=== PATIENT | male | born 1945 | race Caucasian/White ===

== ENCOUNTER 2017-10-20 21:32 | Emergency (ER) | payer MEDICARE ==
[2017-10-20] MEDS ORDERED: oxyCODONE/Acetamin 5/325 MG* TAB PO ONE (22:56)
[2017-10-20] MEDS ORDERED: Ibuprofen TAB* 600 MG PO ONE (22:56)
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
[2017-10-21 00:12] VITALS: BP 148/85
--- NOTE | 2017-10-21 10:20 | RAD ---
INDICATION: Left hip pain COMPARISON: None TECHNIQUE: 3 views of the left hip were obtained. FINDINGS: Postsurgical changes include vasectomy clips and surgical clips overlying the right inguinal region. The visualized bones of the left hip are well-corticated and properly aligned. Degenerative changes of the bilateral hips in the AP view the pelvis include joint space narrowing, sclerotic change of the articulating services and exuberant marginal osteophyte formation on the left.There is no radiographic evidence of acute fracture or dislocation. IMPRESSION: Osteoarthritis of the bilateral hips, more advanced than the left, without radiographic evidence of acute fracture or dislocation. If the patient's symptoms persist follow-up imaging is recommended.
== END 2017-10-21 00:10 | disposition home or self-care (01) ==
LOC: ED 21:32
DX: M16.0 Bilateral primary osteoarthritis of hip (principal); M54.5 Low back pain; I11.0 Hypertensive heart disease with heart failure; I50.9 Heart failure, unspecified; Z79.899 Other long term (current) drug therapy
CPT/HCPCS: 99282; A9270-GY

== ENCOUNTER 2018-01-17 05:52 | Inpatient (IN) | payer MEDICARE ==
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
[~2018-01-17 05:52] MED LIST: Buffered Lidocaine 0.9% SYRIN* 5 ML/SYR SYRINGE INTRADERM ONE
[2018-01-17] MEDS ORDERED: Famotidine IV* 10 MG/ML 2 ML (20 mg) IV ONE (06:00)
[2018-01-17] MEDS ORDERED: Famotidine IV* 10 MG/ML 2 ML (20 mg) ONE (06:04)
[2018-01-17] MEDS ORDERED: ceFAZolin 2 GM PREMIX in ORs 2 GM/50 ML BAG IVPB ONE (06:04)
[2018-01-17] MEDS ORDERED: fentaNYL* 50 MCG/ML 2 ML VIAL (100 MCG VIAL) ONE (07:44)
[2018-01-17] MEDS ORDERED: Midazolam* 1 MG/ML 5 ML VIAL (5 MG) ONE (07:45)
[2018-01-17] MEDS ORDERED: KETAMINE HCL* 50 MG/ML 10 ML VIAL ONE (07:50)
[2018-01-17] MEDS ORDERED: Dexamethasone IV* 4 MG/ML 1 ML (4 MG) ONE (08:23)
[2018-01-17] MEDS ORDERED: DiMENhydriNATE IV* 50 MG/ML VIAL ONE (08:23)
[2018-01-17] MEDS ORDERED: Ondansetron INJ* 2 MG/ML VIAL ONE (08:23)
[2018-01-17] MEDS ORDERED: Ketorolac INJ* 30 MG/ML 1 ML VIAL ONE (08:23)
[2018-01-17] MEDS ORDERED: Propofol* 10 MG/ML 20 ML BTL IV PUSH ONE ×2 (08:23→08:49)
[2018-01-17] MEDS ORDERED: Lidocaine 2% PF * 5 ML VIAL ONE (08:24)
[2018-01-17] MEDS ORDERED: Phenylephrine INJ* 10 MG/ML 1 ML VIAL (10 MG) ONE (08:24)
[2018-01-17] MEDS ORDERED: Bupivacaine-MPF SPINAL* 7.5 MG/ML - 2ML AMP ONE (08:24)
[2018-01-17] MEDS ORDERED: EPHEDrine (Pressors)* 50 MG/ML VIAL ONE (08:45)
[2018-01-17] MEDS ORDERED: HYDROmorphone INJ1* 1 MG/ML SYRINGE IV PRN (09:07)
[2018-01-17] MEDS ORDERED: Naloxone* 0.4 MG/ML 1 ML VIAL IV PRN (09:07)
[2018-01-17] MEDS ORDERED: DiMENhydriNATE IV* 50 MG/ML VIAL IV PUSH PRN (09:07)
[2018-01-17] MEDS ORDERED: oxyCODONE/Acetamin 5/325 MG* TAB PO PRN ×2 (09:07→10:27)
--- NOTE | 2018-01-17 09:46 | RAD ---
Indication: LEFT total hip replacement. Comparison: December 22, 2017 Technique: RIGHT lateral decubitus crosstable AP pelvis and LEFT hip. 0916 hours Report: Prosthetic acetabular component in place. Femur test fit/reamer device in place. No periprosthetic fracture evident. IMPRESSION: #. Intraoperative control films.
[2018-01-17] MEDS ORDERED: Morphine INJ* 2 MG/ML 1 ML SYRINGE (TWO MG - NEW SYRINGE VERSION) IV PRN (10:27)
[2018-01-17] MEDS ORDERED: oxyCODONE TAB* 5 MG TAB PO PRN (10:27)
[2018-01-17] MEDS ORDERED: diPHENhydraMINE IV* 50 MG/ML 1 ml VIAL (BENADRYL) IV PRN (10:27)
[2018-01-17] MEDS ORDERED: Bisacodyl SUPP* 10 MG SUPP PR PRN (10:27)
[2018-01-17] MEDS ORDERED: Cyclobenzaprine TAB* 10 MG PO PRN (10:27)
[2018-01-17] MEDS ORDERED: Magnesium Hydroxide LIQ* 30 ML UDC PO PRN (10:27)
[2018-01-17] MEDS ORDERED: Ondansetron INJ* 2 MG/ML VIAL IV PRN (10:27)
--- NOTE | 2018-01-17 11:16 | RAD ---
Indication: Postop LEFT total hip replacement. Comparison: October 20, 2017 Technique: AP and AP and crosstable lateral views LEFT hip. Report: LEFT total hip prosthesis in place with normal alignment. No periprosthetic fracture evident. Surrounding soft tissue edema and subcutaneous emphysema. Mild osteoarthritis of the contralateral hip noted. IMPRESSION: #. Unremarkable immediate postop appearance following LEFT total hip replacement.
[2018-01-17] MEDS: oxyCODONE/Acetamin 5/325 MG* TAB PO PRN ×2 (13:54→21:16)
[2018-01-17] MEDS: Acetaminophen TAB* 325 MG PO SCH ×2 (13:55→21:32)
--- NOTE | 2018-01-17 14:50 | PN ---
Progress Note - Progress Note Date of Service: 01/17/18 SOAP: Patient seen at bedside POD 0 s/p left total hip arthroplasty. Pain is well controlled. DP2+, DF/PF intact. Sensation intact distally. Dressing CDI.
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
[2018-01-17] MEDS: ceFAZolin 1 GM in Dextrose (*) 1 GM/50 ML BAG IVPB SCH (16:54)
[2018-01-17] MEDS ORDERED: Warfarin TAB(*) 6 MG PO ONE (17:00)
[2018-01-17] MEDS ORDERED: Atorvastatin* 80 MG TAB PO SCH (18:00)
[2018-01-17] MEDS: Magnesium Hydroxide LIQ* 30 ML UDC PO SCH (21:13)
[2018-01-17] MEDS: Tamsulosin CAP* 0.4 MG PO SCH (21:15)
[2018-01-17] MEDS: Docusate CAP* 100 MG PO SCH (21:16)
[2018-01-18] MEDS: ceFAZolin 1 GM in Dextrose (*) 1 GM/50 ML BAG IVPB SCH ×2 (00:11→07:02)
--- NOTE | 2018-01-18 02:11 | OP ---
DATE OF OPERATION: 01/17/18 - ROOM #335 DATE OF : 41 SURGEON: Vijaya Campos MD GENERAL LEDGER BOOKKEEPER: ROGER Denis. Mr. Johnson did help throughout the procedure with preparation of the leg, wound retraction, manipulation of the hip, and wound closure. ANESTHESIOLOGIST: Dr. Castaneda. ANESTHESIA: Spinal. PRE-OP DIAGNOSIS: Severe end-stage degenerative osteoarthritis of the left hip joint. POST-OP DIAGNOSIS: Severe end-stage degenerative osteoarthritis of the left hip joint. OPERATIVE PROCEDURE: Left total hip arthroplasty. COMPLICATIONS: None. ESTIMATED BLOOD LOSS: 300 cc. SPECIMENS: Femoral head and acetabular reamings sent to Pathology. HARDWARE USED: This is uncemented Venturocket total hip arthroplasty hardware. For the cup, a Tritanium cluster hole shell 56E, a single 25-mm cancellous bone screw was used. For the liner, a 36E, 0-degree Trident X3 polyethylene liner. For the stem, an Accolade TMZF size 4 with a 127-degree neck. For the head, a Biolox delta V40 femoral head 36 -2.5. BRIEF HISTORY/INDICATIONS: Mr. Aparicio is a 72-year-old gentleman with severe end- stage arthritis of the left hip joint. He failed conservative treatment with antiinflammatories, pain medications, intraarticular injections, and physical therapy. Due to continued pain and decreased quality of life, he elected to undergo left total hip arthroplasty. An informed consent was obtained from the patient. He understood the risks of surgery included but were not limited to bleeding, infection, damage to nearby structures, continued pain, need for further surgery, intraoperative fracture, nerve palsy, hardware failure or loosening, dislocation, leg length discrepancy, stroke, heart attack , blood clot, and . He wished to proceed. INTRAOPERATIVE FINDINGS: Intraoperatively, the patient was noted to have severe end-stage arthritis with complete loss of cartilage along the acetabulum and femoral head. He had extensive osteophyte formation around the entire acetabulum. DESCRIPTION OF PROCEDURE: Mr. Aparicio was identified in the preanesthesia unit. His left lower extremity was marked as the correct operative side. Informed consent was signed and placed in the chart. The patient was taken to the operating room and placed under spinal anesthesia. A Griffith catheter was placed. The patient was placed in the right lateral decubitus position on the pegboard. All bony prominences were well padded. Left lower extremity was prepped and draped in the usual sterile fashion. Preop time-out was made to correctly identify the patient's side and site. Appropriate perioperative antibiotics were given within 1 hour of incision. A standard 12-cm posterior hip incision was made with a 10 blade and carried down to the lateral fascial layer. Lateral fascial layer was incised in line with the skin incision. Charnley retractor was placed. The piriformis and conjoint tendons were identified off the posterolateral femur and elevated using electrocautery. These were tagged with #5 Ethibond. Next, electrocautery was used to make a standard posterolateral capsular flap and this was also tagged with #5 Ethibond. The hip was carefully dislocated. Lesser troch to center of the femoral head measured 62 mm. Oscillating saw was used to make the appropriate femoral neck cut. The femoral head was removed. The femur was carefully retracted anteriorly. After appropriate placement of retractors, the acetabulum was well visualized. Long-handled knife was used to sharply remove any remaining labrum from the acetabular rim. The acetabulum was sequentially reamed up to a size 55. 55 reamer obtained subchondral bleeding bone bed. 55 trial had excellent fit with appropriate anteversion and abduction angle. Final implant chosen was a 56E Tritanium cluster hole hemispheric shell. This was impacted into the acetabulum without difficulty. The cup was stable with appropriate anteversion and abduction angle. Any peripheral osteophytes were carefully removed using an osteotome. A 25-mm cancellous bone screw was placed in the superior posterior quadrant for extra stability. A Trident X3 0-degree polyethylene insert 36E was chosen and impacted into the acetabulum. Stability of the insert was checked and rechecked and noted to be stable. Next, attention was turned to preparation of the femoral canal. The canal finder was used to enter the proximal femur. The femur was sequentially broached up to a size 4. Size 4 broach had good fit with appropriate anteversion. A 127-neck trial with a 36 +0 head trial. The lesser troch to the center of the femoral head measured 65 mm. Therefore, -2.5 head was chosen. Lesser troch to the center of the femoral head measured 62 mm. The hip was reduced and taken through a range of motion. The hip was stable in all positions. Soft tissue tension and leg lengths were deemed to be appropriate. All trials were removed. Final implant chosen was an Accolade TMZF size 4 with a 127-degree neck. This was impacted into the femoral canal without difficulty. The stem was stable with appropriate anteversion. A Biolox delta ceramic V40 femoral head 36 -2.5 chosen as the final implant. This was impacted onto the femoral head at 52 mm. The hip was reduced and taken through a range of motion. The hip was stable in all positions. There was good soft tissue tension and appropriate leg length. The hip was copiously irrigated with sterile saline. Previously tagged capsule and tendons were reapproximated to the posterolateral femur through 2 trochanteric drill holes. The lateral fascial layer was closed using interrupted #1 Vicryls. The rest of the incision was closed in a layered fashion using 0 and 2-0 Vicryls. The skin was closed using running 3-0 Monocryl and Dermabond. Sterile Adaptic, 4x4s, and paper tape were used to cover the incision. The patient's anesthesia was reversed without difficulty. He was taken to the PACU in stable condition. Intended weightbearing will be weightbearing as tolerated. Intended DVT prophylaxis will be Coumadin with a Lovenox bridge. [id number]/[facility] #: [id number] ALVARO
[2018-01-18] MEDS: oxyCODONE/Acetamin 5/325 MG* TAB PO PRN ×2 (04:28→11:30)
[2018-01-18 05:47] LABS: Hematocrit 32 % (42-52); Mean Platelet Volume 7.9 um3 (7.4-10.4); Platelet Count 163 10^3/ul (150-450)
[2018-01-18] MEDS: Acetaminophen TAB* 325 MG PO SCH ×2 (05:50→12:45)
[2018-01-18 05:52] LABS: INR 1.02 (0.77-1.02)
[2018-01-18 06:02] LABS: EGFR Non-African American 85.8 (>60)
--- NOTE | 2018-01-18 07:15 | PN ---
Progress Note - Progress Note Date of Service: 01/18/18 SOAP: Subjective: Pt. is alert, pain controlled, hopes to go home today. Objective: Vital Signs: Temp Pulse Resp BP Pulse Ox 98.4 F 73 18 120/55 95 01/18/18 04:27 01/18/18 04:27 01/18/18 07:07 01/18/18 04:27 01/18/18 07:07 Laboratory Results - last 24 hr 01/18/18 01/18/18 01/18/18 05:14 05:14 05:14 Hgb 11.0 L Hct 32 L Plt Count 163 MPV 7.9 INR (Anticoag Therapy) 1.02 Sodium 139 Potassium 3.9 Chloride 106 Carbon Dioxide 28 Anion Gap 5 BUN 13 Creatinine 0.87 Est GFR ( Amer) 103.8 Est GFR (Non-Af Amer) 85.8 BUN/Creatinine Ratio 14.9 Glucose 160 H Calcium 8.3 L LLE - dressing c/d/i, thigh soft, distally +df/pf, full sens lt, 2+ dp pulse. Assessment: 72 yo M pod 1 s/p LTHA Plan: wbat lle with post hip precautions pt/ot coumadin with lovenox bridge plan possible d/c to home today with vns - if home today will do ecasa 325 bid []
[2018-01-18] MEDS: Tamsulosin CAP* 0.4 MG PO SCH (08:06)
[2018-01-18] MEDS: Magnesium Hydroxide LIQ* 30 ML UDC PO SCH (08:06)
[2018-01-18] MEDS: Docusate CAP* 100 MG PO SCH (08:06)
--- NOTE | 2018-01-18 08:28 | PN ---
Subjective Date of Service: 01/18/18 Interval History: Pt would like to go home today. Post op pain controlled Objective Active Medications: Acetaminophen (Tylenol Tab*) 650 mg PO Q8HR [facility] Last Admin: 01/18/18 05:50 Dose: Not Given Atorvastatin Calcium (Lipitor*) 80 mg PO QPM [facility] Last Admin: 01/17/18 16:56 Dose: 80 mg Bisacodyl (Dulcolax Supp*) 10 mg NE DAILY PRN PRN Reason: constipation Cyclobenzaprine HCl (Flexeril Tab*) 5 mg PO TID PRN PRN Reason: SPASMS Last Admin: 01/17/18 21:14 Dose: 5 mg Diphenhydramine HCl (Benadryl Iv*) 25 mg IV Q6H PRN PRN Reason: itching Docusate Sodium (Colace Cap*) 100 mg PO BID [facility] Last Admin: 01/18/18 08:06 Dose: 100 mg Enoxaparin Sodium (Lovenox(*)) 40 mg SUBCUT Q24H [facility] Lactated Ringer's (Lactated Ringers 1000 Ml Bag*) 1,000 mls @ 100 mls/hr IV PER RATE [facility] Last Admin: 01/18/18 08:09 Dose: 100 mls/hr Lactulose (Lactulose*) 30 ml PO Q6H PRN PRN Reason: constipation Magnesium Hydroxide (Milk Of Magnesia Liq*) 30 ml PO BID [facility] Last Admin: 01/18/18 08:06 Dose: 30 ml Magnesium Hydroxide (Milk Of Magnesia Liq*) 30 ml PO Q6H PRN PRN Reason: constipation Metoprolol Tartrate (Lopressor Tab*) 25 mg PO QAM [facility] Last Admin: 01/18/18 08:06 Dose: 25 mg Morphine Sulfate (Morphine Inj ((Syringe))*) 2 mg IV Q2H PRN PRN Reason: PAIN - SEVERE Multivitamins (Theragran Tab*) 1 tab PO DAILY [facility] Last Admin: 01/18/18 08:06 Dose: 1 tab Ondansetron HCl (Zofran Inj*) 4 mg IV Q6H PRN PRN Reason: nausea Oxycodone HCl (Roxycodone Tab*) 10 mg PO Q4H PRN PRN Reason: PAIN - SEVERE Last Admin: 01/17/18 16:56 Dose: 10 mg Oxycodone/Acetaminophen (Percocet 5/325 Tab*) 1 tab PO Q4H PRN PRN Reason: PAIN Oxycodone/Acetaminophen (Percocet 5/325 Tab*) 2 tab PO Q4H PRN PRN Reason: PAIN Last Admin: 01/18/18 04:28 Dose: 2 tab Pharmacy Profile Note (Coumadin Daily Reminder*) 0 note FOLLOW UP 1700 [facility] Last Admin: 01/17/18 16:56 Dose: 1 note Tamsulosin HCl (Flomax Cap*) 0.4 mg PO BID [facility] Last Admin: 01/18/18 08:06 Dose: 0.4 mg Warfarin Sodium (Coumadin Tab(*)) 8 mg PO ONCE@1700 ONE; Protocol Stop: 01/18/18 17:01 Vital Signs - 8 hr 01/18/18 01/18/18 01/18/18 04:27 04:28 06:42 Temperature 98.4 F Pulse Rate 73 Respiratory 18 16 16 Rate Blood Pressure 120/55 (mmHg) O2 Sat by Pulse 95 Oximetry 01/18/18 01/18/18 07:07 07:57 Temperature 98.5 F Pulse Rate 81 Respiratory 18 16 Rate Blood Pressure 122/55 (mmHg) O2 Sat by Pulse 95 94 Oximetry Oxygen Devices in Use Now: None Appearance: 72 yo M in nAD, AAOx3 Eyes: No Scleral Icterus, PERRLA Ears/Nose/Mouth/Throat: NL Teeth, Lips, Gums, Mucous Membranes Moist Neck: NL Appearance and Movements; NL JVP, Trachea Midline Respiratory: Symmetrical Chest Expansion and Respiratory Effort, Clear to Auscultation Cardiovascular: NL Sounds; No Murmurs; No JVD Abdominal: NL Sounds; No Tenderness; No Distention Lymphatic: No Cervical Adenopathy Extremities: No Edema, No Clubbing, Cyanosis Skin: No Nodules or Sclerosis, - - left post op -dressings not removed, no obvious hematoma noted Neurological: Alert and Oriented x 3, NL Muscle Strength and Tone Result Diagrams: 01/18/18 05:14 01/18/18 05:14 Assess/Plan/Problems-Billing Assessment: 72 yo m with h/o CAD, HTN, s/p elective left hip replacement - Patient Problems (1) Hip joint replacement status Comment: as per ortho service (2) HTN (hypertension) Comment: cont lopressor, controlled (3) CAD (coronary artery disease) Comment: spoke with ortho service re: optimal tx with ASA 81 mg and Eliquis, but Eliquis only is also acceptable (4) DVT prophylaxis Comment: planned Eliquis at d/c Status and Disposition: thank you for consult, will sign off
[2018-01-18] MEDS ORDERED: Vitamin THERAPEUTIC TAB PO SCH (09:00)
[2018-01-18] MEDS ORDERED: Metoprolol Tartrate TAB* 25 MG PO SCH (09:00)
[2018-01-18 11:42] VITALS: BP 140/63
[2018-01-18] MEDS ORDERED: Enoxaparin(*) 40 MG/0.4 ML SYR SUBCUT SCH (12:00)
[2018-01-18] MEDS ORDERED: Warfarin TAB(*) 4 MG PO ONE (17:00)
--- NOTE | 2018-01-18 22:07 | DS ---
AMENDED REPORT NOW INCLUDES COSIGNER DESIGNATION - ESIGNED BEFORE ADJUSTMENT DISCHARGE SUMMARY: DATE OF ADMISSION: 01/17/18. DATE OF DISCHARGE: 01/18/18. ATTENDING SURGEON: Dr. Campos * (DICTATED BY ROGER ESQUIVEL) PRINCIPAL DIAGNOSIS: End-stage osteoarthritis of the left hip. DISCHARGE DIAGNOSIS: End-stage osteoarthritis of the left hip. HISTORY OF PRESENT ILLNESS: Mr. Aparicio is a 72-year-old gentleman with continued complaints of left hip pain. He has failed conservative treatment and elected to proceed with a left total hip arthroplasty. HOSPITAL COURSE: Mr. Aparicio was admitted electively to the hospital on 01/17/18 , and underwent a left total hip arthroplasty. He tolerated the procedure well. Postoperatively, he was placed on Lovenox and Coumadin for DVT prophylaxis. On postop day #1, his H and H was 11 and 32. His INR was 1.02. His vital signs were stable and he was ambulating well with physical therapy. DISCHARGE MEDICATIONS: 1. Percocet 5/325 mg 1 to 2 tabs every 6 hours as needed for pain. 2. Colace 100 mg 2 to 3 times a day as needed for constipation. 3. Aspirin 325 mg twice a day for a month. 4. Lipitor 80 mg daily. 5. Metoprolol 25 mg daily. 6. Flomax 0.4 mg twice a day. PHYSICAL EXAMINATION UPON DISCHARGE: He was afebrile. His vital signs were stable. His wound was clean and dry. He was ambulating well with the aid of a walker and he was distally neurovascularly intact. DISCHARGE INSTRUCTIONS: He was discharged home. He will remain weightbearing as tolerated and continue the posterior hip precautions. He was given a prescription for Percocet to take every 6 hours for pain. He was also given aspirin 325 to take twice daily for DVT prophylaxis. He will follow up with Dr. Campos in 2 weeks. We have asked him to call our office sooner with any questions or concerns. ROGER ESQUIVEL [id number]/[facility] #: [id number] [facility]
== END 2018-01-18 15:45 | disposition home health service (06) | DRG 470 ==
LOC: AA 05:52 → SSU 11:51
PROVIDERS: ADMIT Orthopaedic Surgery Adult Reconstructive Orthopaedic Surgery; ATTEND Internal Medicine
PROC: 0SRB04A Replacement of Left Hip Joint with Ceramic on Polyethylene Synthetic Substitute, Uncemented, Open Approach (ICD-10-PCS; principal; 2018-01-16)
DX: M16.12 Unilateral primary osteoarthritis, left hip (principal); I25.10 Atherosclerotic heart disease of native coronary artery without angina pectoris; I10 Essential (primary) hypertension; E78.5 Hyperlipidemia, unspecified; N40.0 Benign prostatic hyperplasia without lower urinary tract symptoms; I27.20 Pulmonary hypertension, unspecified; I25.9 Chronic ischemic heart disease, unspecified; F41.9 Anxiety disorder, unspecified; M25.752 Osteophyte, left hip; Z98.52 Vasectomy status; Z82.49 Family history of ischemic heart disease and other diseases of the circulatory system; Z79.82 Long term (current) use of aspirin; Z95.5 Presence of coronary angioplasty implant and graft; Z87.891 Personal history of nicotine dependence; Z80.6 Family history of leukemia; I25.2 Old myocardial infarction; Z83.49 Family history of other endocrine, nutritional and metabolic diseases; Z90.89 Acquired absence of other organs; Z72.89 Other problems related to lifestyle; Z82.61 Family history of arthritis; Z83.3 Family history of diabetes mellitus
CPT/HCPCS: 36415; 80048; 85014; 85018; 85049; 85610; 88304; 88311; A9270-GY; C1713; C1776; G8978-GP-CI; G8978-GP-CJ; G8978-GP-CK; G8979-GP-CI; G8980-GP-CI; G8987-GO-CJ; G8988-GO-CJ; G8989-GO-CJ; J0690; J1100; J1240; J1650; J1885; J2250; J2405; J2704; J3010

== ENCOUNTER 2018-05-21 08:13 | Day surgery (SDC) | payer MEDICARE ==
[2018-05-21] MEDS ORDERED: Neomycin/Polymy/Dex OPHTH.OIN* 3.5 GM ONE (09:17)
[2018-05-21] MEDS ORDERED: Cyclopentolate 1% OPTH.SOL* 2 ML BTL ONE (09:17)
[2018-05-21] MEDS ORDERED: Tetracaine 0.5% OPTH.SOL 4 ML* 1 DROP BTL ONE (09:17)
[2018-05-21] MEDS ORDERED: Lidocaine 1%* 5 ML VIAL ONE (09:17)
[2018-05-21] MEDS ORDERED: Ketorolac 0.5% OPHTH (NF) 0.5 % 5 ML BTL ONE (09:17)
[2018-05-21] MEDS ORDERED: Tropicamide 1% OPTH.SOL* BTL ONE (09:17)
[2018-05-21] MEDS ORDERED: Midazolam* 1 MG/ML 2 ML VIAL (2 MG) ONE (10:23)
--- NOTE | 2018-05-21 11:05 | OP ---
DATE OF OPERATION/DATE OF DICTATION: 05/21/2018 - [facility] DATE OF : 1945. SURGEON: Dr. Herrera Bowens. SPECIAL PROCEDURES TECH: None. ANESTHESIA: Topical with intravenous sedation. PRE-OP DIAGNOSIS: Cataract, right eye. POST-OP DIAGNOSIS: Cataract, right eye. OPERATIVE PROCEDURE: Phacoemulsification and cataract extraction with posterior chamber intraocular lens implant, right eye. COMPLICATIONS: None. BLOOD LOSS: None. DESCRIPTION OF PROCEDURE: The patient was brought to the operating room and received a small amount of intravenous sedation. A drop of Tetracaine was placed in his right eye. He was prepped and draped in the usual sterile fashion for ophthalmic surgery and attention was directed to the right eye where a speculum was placed. A paracentesis was created at the 11 o'clock position and 0.1 cc of 1 percent preservative-free Lidocaine was injected into the anterior chamber followed by DisCoVisc. The eye was digitally stabilized while a 2.75 mm keratome was used to create a triplanar clear corneal incision at the 9 o'clock position. A continuous curvilinear capsulorrhexis was created with a cystotome and Utrata forceps. BSS on a cannula was used to hydrodissect the lens from the capsule. Phacoemulsification was performed in a divide-and- conquer technique to create four fragments which were removed. Residual cortical material was removed with irrigation and aspiration. DisCoVisc was used to inflate the capsular bag and an AUOOTO 19.5 diopter lens was folded and inserted into the capsular bag. DisCoVisc was removed using irrigation and aspiration. BSS on a cannula was used to hydrate the corneal stroma and seal the wound. At the end of the case the pupil was round and the lens was centered. The eye was of normal pressure and the wound was water tight. The speculum was removed and topical Maxitrol ointment was placed on the surface of the eye. The eye was closed, patched and shielded and the patient was sent to the recovery room in stable condition with post operative instructions and follow-up appointment given. [id number]/[facility] #: [id number] MTDD
[2018-05-21 13:16] VITALS: BP 144/71
== END 2018-05-21 11:01 | disposition home or self-care (01) ==
LOC: OREAST 08:13
PROVIDERS: ATTEND Ophthalmology
DX: H25.21 Age-related cataract, morgagnian type, right eye (principal); Z87.891 Personal history of nicotine dependence; I25.2 Old myocardial infarction; Z95.1 Presence of aortocoronary bypass graft; I25.10 Atherosclerotic heart disease of native coronary artery without angina pectoris; E78.5 Hyperlipidemia, unspecified; N40.0 Benign prostatic hyperplasia without lower urinary tract symptoms
CPT/HCPCS: A9270-GY; J2250; V2632

== ENCOUNTER → 2019-03-03 | Day surgery (SDC) | payer MEDICARE ==
[~2019-03-03] MED LIST changes: +Acetaminophen IV 1GM/100ML * 0 ML ONE; +Acetaminophen IV 1GM/100ML * 100 ML ONE; -Buffered Lidocaine 0.9% SYRIN* 5 ML/SYR SYRINGE INTRADERM ONE; +Buffered Lidocaine 1% SYRIN* 1 ML/SYRINGE INTRADERM ONE; +Dexamethasone IV* 4 MG/ML 1 ML (4 MG) ONE; +Dexmedetomidine* 200 MCG/2 ML 2 ML VIAL ONE; +DiMENhydriNATE IV* 50 MG/ML VIAL IV PUSH PRN; +Glycopyrrolate IV* 0.2 MG/ML 1 ML VIAL ONE; +HYDROmorphone INJ1* 1 MG/ML SYRINGE IV PRN; +Ketorolac INJ* 30 MG/ML 1 ML VIAL ONE; +Lactated Ringers 1000 ML Bag* 1,000 ML IV SCH; +Lidocaine 2% PF * 5 ML VIAL ONE; +Metoclopramide IV* 5 MG/ML 2 ML VIAL ONE; +Midazolam* 1 MG/ML 2 ML VIAL (2 MG) ONE; +Naloxone* 0.4 MG/ML 1 ML VIAL IV PRN; +Neostigmine Methylsulfate* 1 MG/ML 10 ML VIAL (1 mg/ml) ONE; +Ondansetron INJ* 2 MG/ML VIAL ONE; +Phenylephrine 10 MG/ML VIAL* 1 ML VIAL ONE; +Phenylephrine 40 MCG/ML SYRINGE ONE; +Propofol* 10 MG/ML 20 ML BTL ONE; +ROPIVACAINE 5 MG/ML 30 ML BTL (0.5%) ONE; +Rocuronium* 10 MG/ML VIAL ONE; +Ropivacaine 0.2% * 2 MG/ML VIAL ONE; +ceFAZolin 2 GM PREMIX in ORs 2 GM/50 ML BAG ONE; +fentaNYL* 50 MCG/ML 2 ML VIAL (100 MCG VIAL) ONE; +oxyCODONE TAB* 5 MG TAB PO PRN
[2019-03-03 17:27] VITALS: BP 142/84
--- NOTE | 2019-03-04 11:09 | OP ---
OPERATIVE REPORT: DATE OF OPERATION: 03/03/19 DATE OF : 41 SURGEON: Ines Barriga MD [employer]ING [employer] SUPERVISOR: ROGER Traore An clinical education assistant was needed for the entirety of the case to help with positioning, retraction, and was utilized throughout all portions of the case. ANESTHESIOLOGIST: Dr. Malagon. ANESTHESIA: General interscalene block. PRE-OP DIAGNOSIS: Left shoulder high-grade partial thickness tear of the rotator cuff and bicipital tendonitis and tendinosis. POST-OP DIAGNOSIS: Left shoulder high-grade partial thickness tear of the rotator cuff and bicipital tendonitis and tendinosis. OPERATIVE PROCEDURE: Left shoulder arthroscopy with: 1. Extensive glenohumeral debridement. 2. Subacromial decompression with acromioplasty. 3. Rotator cuff repair using Regeneten patch. 4. Biceps tenodesis. COMPLICATIONS: None. ESTIMATED BLOOD LOSS: Minimal. IMPLANTS USED: One size large Regeneten patch and one Q-Fix 2.8 mm. INDICATIONS: Ryan Aparicio is a 74-year-old male with persistent pain in his left shoulder. He has failed conservative management. He has high-grade partial thickness tear of the rotator cuff as well as tearing of the subscap and biceps tendinosis and tendonitis. After extensive discussion of the risks and benefits of operative versus nonoperative treatment, he has elected to proceed with surgical treatment. Risks included, but are not limited to bleeding; infection; damage to nerves, vessels, surrounding structures; wound nonhealing; persistent pain; need for further surgery; scarring; stiffness; incomplete relief of symptoms; risks of anesthesia. DESCRIPTION OF PROCEDURE: The patient was greeted in the preoperative area by the attending surgeon. Correct extremity was marked and consent was confirmed. He underwent interscalene nerve block by the anesthesiologist after which he was brought back to the operating suite, placed in supine position on the operating table, underwent general anesthesia and LMA intubation. He was then positioned in the right lateral decubitus position with an axillary roll. All bony prominences were padded and secured with a pegboard. The left shoulder was draped unsterile with 10 pounds of traction. Left shoulder was then prepped and draped in the usual sterile fashion beginning with chlorhexidine soap, scrub, and alcohol wipe, and a final prep with ChloraPrep. After appropriate surgical pause indicating side, site, procedure, and administration of antibiotics, the standard posterolateral portal was made sharply with 11 blade. The scope was introduced into the joint. Joint was examined. There were some mild chondral changes. The anterior, posterior, and superior labrum had unstable fraying. The undersurface of the supraspinatus had significant high-grade partial thickness tearing with unstable flap. The anterior portal was made in outside-in fashion. Biceps had obvious tendinosis and tendonitis and tearing from the superior labrum. This was then tenotomized for lateral tenodesis. The undersurface of the subscap had mild partial tearing. The shaver was used to debride back to the undersurface of the rotator cuff. The anterior, posterior, and superior labrum had unstable flaps which were debrided back as well as a small chondroplasty done on the glenoid. The shoulder joint was thoroughly lavaged. Attention was then directed to the subacromial space. With the scope in the subacromial space, the lateral portal was made in an outside- in fashion. Shaver was used to debride back the abundant bursa that was present. There was no evidence of fluid egress. No evidence of full thickness tear of the rotator cuff. The undersurface of the acromion had a large anterolateral spur, which was debrided back using 4-0 oval bur. After this was done, attention was directed to the rotator cuff. The cuff was found to have no full thickness tears and no partial tearing on the bursal side. Decision was made to treat this with Regeneten patch. A size large Regeneten patch was then brought to the field. Two separate stab incisions were made to pass cannulas. This tendon was secured medially with tendon leeanne and laterally with PEEK leeanne into the bone. This was secured the graft. The shoulder was taken through gentle range of motion. There was no evidence of loosening. Final images were obtained. The wound was thoroughly irrigated with sterile saline. Attention was directed to the biceps. With the bed air planed to the left side, the anterior aspect of the shoulder was prepped again using ChloraPrep. The 15 blade was used to make an incision. The soft tissue was carefully dissected bluntly to find the biceps tendon, which was then brought through the wound. The groove was then prepared in the usual fashion. There was obvious tendinosis and tendinitis of the biceps. The groove was prepared in the usual fashion with electrocautery device, red ball rasp, and osteotome. The Q-Fix drill was then used to drill unicortically and the Q-Fix was deployed with excellent purchase. The sutures were then passed through the biceps approximately 1 cm from proximal musculotendinous junction in Derek-Brian type configuration. The excess stump was excised. The wounds were then copiously irrigated with sterile saline. Portals were closed with 3- 0 nylon. Anterior wound was closed in layers with 3-0 Monocryl running for subcutaneous. Sterile dressings were applied. Cryo/Cuff and UltraSling were applied. He was awoken from anesthesia and transferred to the PACU in stable condition. POSTOPERATIVE PLAN: He will be nonweightbearing. He will start elbow, hand, and wrist range of motion. We will start therapy next week. I will see the patient back in 10 to 14 days. DVT prophylaxis was considered, but deferred due to no previous personal or family history. [id number]/[facility] #: [id number] MTDD
== END | disposition home or self-care (01) ==
LOC: OR 12:19
PROVIDERS: ATTEND Orthopaedic Surgery
DX: S46.012D Strain of muscle(s) and tendon(s) of the rotator cuff of left shoulder, subsequent encounter (principal); M75.22 Bicipital tendinitis, left shoulder; X58.XXXD Exposure to other specified factors, subsequent encounter; Y92.9 Unspecified place or not applicable; G89.18 Other acute postprocedural pain; I10 Essential (primary) hypertension; E78.5 Hyperlipidemia, unspecified; Z87.891 Personal history of nicotine dependence; Z95.5 Presence of coronary angioplasty implant and graft; I25.10 Atherosclerotic heart disease of native coronary artery without angina pectoris; I25.2 Old myocardial infarction
CPT/HCPCS: C1713; C1776; J0690; J1100; J1885; J2250; J2405; J2704; J2710; J2765; J2795; J3010